=== PATIENT | male | born 1970 | race Caucasian/White ===

== ENCOUNTER 2016-05-05 11:55 | Inpatient (IN) | payer MEDICAID ==
[~2016-05-05] VITALS: Ht 180.3 cm; Wt 78.0 kg
[2016-05-05 12:00] VITALS: BP 146/93; PULSE 110; RESP 20; TEMP 97.8; O2SAT 94
--- NOTE | 2016-05-05 13:20 | NUR ---
Patient to [facility] for evaluation. Side rails up. Report given to EVELYN MITCHELL.
--- NOTE | 2016-05-05 13:30 | NUR ---
ER at bedside examining patient.
--- NOTE | 2016-05-05 13:40 | NUR ---
PT BIB EMS FOR ETOH INTOXICATION.PT H/O MULTIPLE ER VISITS IN DIFFERENT ERs FOR SAME COMPLAINT.UNABLE TO GATHER VERBAL HX FOR PT. WILL MONITOR.
[2016-05-05] MEDS ORDERED: NACL 0.9% 1,000 ML IV ONE (13:45)
--- NOTE | 2016-05-05 13:50 | NUR ---
# 18 gauge angiocath placed to RFA. Use of asceptic technique. Opsite placed over site. Blood return noted. Flushed with 10 cc of normal saline. No evidence of infiltration noted. Patient tolerated well.
[2016-05-05 14:13] LABS: EOSINOPHILS # (AUTO) 0.1 K/uL (0.0-0.4); MEAN CORPUSCULAR HEMOGLOBIN 27 pg (27-31); MEAN CORPUSCULAR HGB CONC 33 % (32-36); MEAN CORPUSCULAR VOLUME 82 fL (79.0-98.0); MONOCYTES # (AUTO) 0.4 K/uL (0.0-1.0); RED BLOOD CELL COUNT(AUTO) 3.68 MIL/uL (4.2-6.2)
[2016-05-05 14:15] LABS: CALCIUM 8.5 mg/dL (8.4-11.0); CREATININE 0.73 mg/dL (0.55-1.30); POTASSIUM 3.9 mmol/L (3.5-5.1)
[2016-05-05 14:20] LABS: ALBUMIN 3.2 g/dL (3.4-4.8); TOTAL BILIRUBIN 0.3 mg/dL (0.0-1.0); TOTAL PROTEIN, SERUM 7.4 g/dL (6.4-8.3)
[2016-05-05 14:24] LABS: BASOPHILS % (AUTO) 0.9 % (0.0-2.0); EOSINOPHILS % (AUTO) 2.3 % (0.0-4.0); HEMATOCRIT 30.1 % (36-54); LYMPHOCYTES # (AUTO) 1.1 K/uL (1.0-5.5); LYMPHOCYTES % (AUTO) 30.1 % (20.5-51.5); MONOCYTES % (AUTO) 10.6 % (1.7-9.3); NEUTROPHILS # (AUTO) 2.2 K/uL (1.8-7.7); NEUTROPHILS % (AUTO) 56.1 % (40.0-70.0); PLATELET COUNT (AUTO) 173 K/uL (130-430); RED CELL DISTRIBUTION WIDTH 15.7 % (9.0-15.0)
[2016-05-05 14:28] LABS: WHITE BLOOD COUNT (AUTO) 3.8 K/uL (4.8-10.8)
--- NOTE | 2016-05-05 14:30 | NUR ---
PT TOLERATING IVF.
--- NOTE | 2016-05-05 15:00 | NUR ---
PT REFUSING TO RESPONSE TO VERBAL AND TACTILE STIMULI
--- NOTE | 2016-05-05 15:55 | NUR ---
Patient will be admitted to care of . Admitted to ICU unit. Will go to room 4. Belongings list completed. Summary report printed. Report given to ADMISSION RN.
[2016-05-05 16:00] VITALS: BP 146/82; PULSE 108; RESP 12; TEMP 99.4; O2SAT 98
--- NOTE | 2016-05-05 16:00 | NUR ---
NURSE: PT ADMITTED VIA ER, A CASE OF ALCOHOL INTOXICATION, PT CAME IN DROWSY BUT AROUSABLE, ORIENTED TO SELF, ON ROOM AIR, HIS CLOTHES ARE WET WITH HIS URINE, HOOKED TO MONITOR, SINUS TACHY AT 102, BP STABLE, 0.9 NACL 1L IS GOING ON, WILL CALL DR RANGEL FOR ORDERS.
[2016-05-05 16:32] VITALS: BP 146/82; PULSE 102; RESP 22; TEMP 99.4; O2SAT 95
[2016-05-05 17:00] VITALS: BP 134/77; PULSE 87; RESP 18; O2SAT 96
[2016-05-05 18:00] VITALS: BP 158/90; PULSE 97; RESP 16; O2SAT 95
[2016-05-05] MEDS ORDERED: D5NS 1,000 ML IV SCH (18:45)
[2016-05-05] MEDS ORDERED: ONDANSETRON HCL 4 MG/2 ML VIAL IVP PRN (18:45)
[2016-05-05] MEDS ORDERED: ACETAMINOPHEN 325 MG TABLET PO PRN (18:45)
[2016-05-05] MEDS ORDERED: METOCLOPRAMIDE HCL 10 MG/2 ML VIAL IVP PRN (18:45)
[2016-05-05] MEDS ORDERED: LORazepam 2 MG/ML VIAL IM PRN (18:45)
[2016-05-05] MEDS ORDERED: FOLIC ACID 1 MG, THIAMINE HCL 100 MG, MAGNESIUM SULFATE 1 GM, MVI 10 ML in NACL 0.9% 1,... IV SCH (18:45)
[2016-05-05] MEDS ORDERED: MORPHINE 2 MG/ML INJ. SYRINGE IVP PRN (18:45)
--- NOTE | 2016-05-05 19:25 | NUR ---
NURSE; PT WENT AMA, DR RANGEL IS AWARE, IV LINE REMOVED, SIGNED AMA PAPER, PT WALKED OUT OF THE ICU ESCORTED BY THE SECURITY PERSONNEL.
[2016-05-10] MEDS ORDERED: FOLIC ACID 1 MG, THIAMINE HCL 100 MG, MAGNESIUM SULFATE 1 GM, MVI 10 ML in NACL 0.9% 1,... IV SCH (18:41)
== END 2016-05-05 19:49 | disposition left against medical advice (07) | DRG 770 ==
LOC: SED 11:55 → SIC 15:40
PROVIDERS: ADMIT Internal Medicine Hospice and Palliative Medicine; ATTEND Internal Medicine Hospice and Palliative Medicine
DX: F10.129 Alcohol abuse with intoxication, unspecified (principal); D64.9 Anemia, unspecified; R73.9 Hyperglycemia, unspecified
CPT/HCPCS: 36415; 80053; 85025; 99291; G0482; J7030

== ENCOUNTER 2016-06-03 18:38 | Inpatient (IN) | payer MEDICAID ==
[~2016-06-03] VITALS: Ht 170.2 cm; Wt 76.7 kg
[2016-06-03 18:38] VITALS: BP 111/60; PULSE 98; RESP 13; TEMP 98.9; O2SAT 98
--- NOTE | 2016-06-03 18:38 | NUR ---
Patient to ER bed 3 to gown for evaluation. Side rails up. Report given to STEPHEN Trevino.
--- NOTE | 2016-06-03 18:50 | NUR ---
Patient brought in due to being passed out on sidewalk sleeping, known history of alcohol abuse. Patient sleeping in bed, wakens to loud voice, grunting, not answering questions. Breathing even and unlabored, no distress noted. No other complaints/injuries per patient or noted.
--- NOTE | 2016-06-03 19:00 | NUR ---
Patient in bed, wakens to voice, still sleepy. Breathing unlabored, no respiratory distress noted
[2016-06-03] MEDS ORDERED: ONDANSETRON HCL 4 MG/2 ML VIAL IVP ONE (20:00)
[2016-06-03] MEDS ORDERED: FOLIC ACID 1 MG, THIAMINE HCL 100 MG, MAGNESIUM SULFATE 1 GM, MVI 10 ML in NACL 0.9% 1,... IV ONE (20:00)
[2016-06-03] MEDS ORDERED: MAG HYDROX/AL HYDROX/SIMETH 30 ML, BELLADONNA ALKALOIDS/PHENOBARB 10 ML, LIDOCAINE VISC... PO ONE ×3 (20:00)
--- NOTE | 2016-06-03 20:00 | NUR ---
Patient sleeping in bed, wakens to voice. No distress noted, breathing unlabored. Monitoring.
[2016-06-03 20:13] LABS: BASOPHILS # (AUTO) 0.1 K/uL (0.0-0.2); EOSINOPHILS # (AUTO) 0.1 K/uL (0.0-0.4); EOSINOPHILS % (AUTO) 1.3 % (0.0-4.0); LYMPHOCYTES # (AUTO) 1.1 K/uL (1.0-5.5)
[2016-06-03] MEDS ORDERED: THIAMINE HCL 100 MG/ML VIAL ONE (20:20)
[2016-06-03] MEDS ORDERED: MAGNESIUM SULFATE 1 GM/2 ML VIAL ONE (20:20)
[2016-06-03] MEDS ORDERED: FOLIC ACID 5 MG/ML VIAL IV ONE (20:20)
[2016-06-03 20:22] LABS: HEMATOCRIT 28.1 % (36-54); HEMOGLOBIN 9.2 g/dL (14.0-18.0); LYMPHOCYTES % (AUTO) 20.1 % (20.5-51.5); MEAN CORPUSCULAR HEMOGLOBIN 28 pg (27-31); MEAN CORPUSCULAR HGB CONC 33 % (32-36); MEAN CORPUSCULAR VOLUME 84 fL (79.0-98.0); MONOCYTES # (AUTO) 0.7 K/uL (0.0-1.0); MONOCYTES % (AUTO) 12.3 % (1.7-9.3); NEUTROPHILS # (AUTO) 3.4 K/uL (1.8-7.7); NEUTROPHILS % (AUTO) 64.3 % (40.0-70.0); PLATELET COUNT (AUTO) 275 K/uL (130-430); RED BLOOD CELL COUNT(AUTO) 3.35 MIL/uL (4.2-6.2); RED CELL DISTRIBUTION WIDTH 17.1 % (9.0-15.0); WHITE BLOOD COUNT (AUTO) 5.4 K/uL (4.8-10.8)
[2016-06-03 20:25] LABS: CALCIUM 8.6 mg/dL (8.4-11.0); CREATININE 0.72 mg/dL (0.55-1.30)
[2016-06-03 20:29] LABS: ALBUMIN 3.1 g/dL (3.4-4.8); TOTAL BILIRUBIN 0.3 mg/dL (0.0-1.0); TOTAL PROTEIN, SERUM 7.2 g/dL (6.4-8.3)
[2016-06-03 20:40] LABS: PROTHROMBIN TIME 10.4 SECS (9.5-12.5)
--- NOTE | 2016-06-03 21:00 | NUR ---
Patient remains sleeping, breathing even and unlabored. Wakens to voice. Dr. Jaja ruby.
--- NOTE | 2016-06-03 21:27 | NUR ---
Miguel taylor in [facility] - 06/03/[address] Wilkinson aware that batsheva skelton
--- NOTE | 2016-06-03 21:27 | NUR ---
Dr. Wilkinson aware that patient can not have GI cocktail due to being too lethargic, stated okay do not need.
--- NOTE | 2016-06-03 21:30 | NUR ---
Unable to obtain urine sample due to patient refusing when sample is attempted to get obtained. Dr. Jaja ruby.
--- NOTE | 2016-06-03 21:56 | NUR ---
Patient in stable condition, sleeping, wakens to voice Breathing unlabored, no respiratory distress noted
--- NOTE | 2016-06-03 22:20 | NUR ---
Patient will be admitted to care of Dr. Parr. Admitted to tele unit. Summary report printed. Report given to Maggy MITCHELL.
--- NOTE | 2016-06-03 22:23 | NUR ---
ADMISSION NOTE Received patient from ER via mark, received report from Belinda MITCHELL. Patient admitted with diagnosis of ETOH withdraw. Patient not oriented to hospital routine, call light. Bed close to station for safety, bed alarm on.
[2016-06-03 23:09] VITALS: BP 132/78; PULSE 86; RESP 18; TEMP 97; O2SAT 98
--- NOTE | 2016-06-03 23:41 | NUR ---
RN ROUNDS Received patient from ER. Dx: alcohol intoxication, patient drowsy, responds to tactile stimuli, vitals stable. Bed bath and incontinence care provided, patient urinated in urinal with assistance, placed on tele monitor, ST. IV line to left AC intact and patent, IVF infusing, all patient belongings accounted for. Fall and safety measures in place, bed alarm on, call light within reach, will closely monitor.
--- NOTE | 2016-06-04 00:42 | NUR ---
RN ROUNDS Patient asleep, respirations even and unlabored, vitals stable. IVF ongoing, safety measures in place, call light within reach, will continue to monitor.
[2016-06-04 00:51] VITALS: BP 115/72; PULSE 85; RESP 17; TEMP 97.1; O2SAT 95
--- NOTE | 2016-06-04 02:06 | NUR ---
RN ROUNDS Patient continues to sleep, respirations even and unlabored. fall and safety measures in place, call light within reach, will continue to monitor.
[2016-06-04] MEDS: LORazepam 2 MG/ML VIAL IVP PRN ×4 (02:54→18:04)
[2016-06-04] MEDS: NACL 0.9% 1,000 ML IV SCH ×3 (02:58→18:30)
--- NOTE | 2016-06-04 03:29 | NUR ---
RN ROUNDS Patient awake, crying, Ativan 1 mg ivp given, patient requesting HS snack, needs attended to.
[2016-06-04 04:23] VITALS: BP 121/65; PULSE 107; RESP 16; TEMP 96.9; O2SAT 98
--- NOTE | 2016-06-04 04:49 | NUR ---
RN ROUNDS Patient awake, watching tv, no distress noted, vital signs stable. Call light within reach, will monitor.
--- NOTE | 2016-06-04 05:34 | NUR ---
PAGED: I PAGED DR. PATTON [phone] I SPOKE WITH SHEA PATTON CALLED BACK @ [phone]
[2016-06-04] MEDS: IBUPROFEN 600 MG TABLET PO PRN ×3 (05:49→20:24)
[2016-06-04 06:02] LABS: BILIRUBIN,URINE NEGATIVE (NEGATIVE); BLOOD, URINE NEGATIVE (NEGATIVE); CLARITY/URINE CLEAR (CLEAR); COLOR,URINE YELLOW (YELLOW); GLUCOSE,URINE 3+ (NEGATIVE); KETONES,URINE 1+ (NEGATIVE); LEUKOCYTE ESTERASE ,URINE NEGATIVE (NEGATIVE); NITRITE, URINE NEGATIVE (NEGATIVE); PH,URINE 5.5 (5.0-8.0); PROTEIN URINE NEGATIVE (NEGATIVE); UROBILINOGEN,URINE 0.2 (0.2-1.0)
[2016-06-04 06:19] LABS: BACTERIA,URINE FEW /HPF (None Seen); MUCUS,URINE None Seen /LPF (None Seen); RBC,URINE 0-3 /HPF (0-3); WBC,URINE 0-3 /HPF (0-3)
--- NOTE | 2016-06-04 06:37 | NUR ---
RN ROUNDS/MD Patient awake and alert, was c/o of right hip pain, right hip with bruises, patient stated he fell and that is how he got the bruises. Paged Dr. Parr, called back, ordered Motrin for pain and xray of right hip. Medicated patient with Motrin 600 mg 1 tab for pain management. Needs attended to, call light remains within reach, fall and safety measures maintained, will continue to monitor until report given to am nurse.
--- NOTE | 2016-06-04 08:00 | NUR ---
OPENING NOTE PATIENT REPORTS RIGHT HIP PAIN RT FALL PRIOR TO ARRIVAL. LARGE HEMATOMA ON RIGHT HIP NOTED. ICE PACKS APPLIED. PATIENT ALSO STATES HE HAS SEIZURES WHEN HE STOPS DRINKING AND CLAIMS TO TAKE 2MG OF ATIVAN EVERY FOUR HOURS AT HOME.
[2016-06-04 08:06] LABS: BASOPHILS # (AUTO) 0.1 K/uL (0.0-0.2); BASOPHILS % (AUTO) 1.7 % (0.0-2.0); EOSINOPHILS % (AUTO) 1.1 % (0.0-4.0); HEMATOCRIT 23.2 % (36-54); HEMOGLOBIN 7.6 g/dL (14.0-18.0); LYMPHOCYTES # (AUTO) 0.9 K/uL (1.0-5.5); LYMPHOCYTES % (AUTO) 20.2 % (20.5-51.5); MEAN CORPUSCULAR HEMOGLOBIN 27 pg (27-31); MEAN CORPUSCULAR HGB CONC 33 % (32-36); MEAN CORPUSCULAR VOLUME 83 fL (79.0-98.0); MONOCYTES # (AUTO) 0.7 K/uL (0.0-1.0); MONOCYTES % (AUTO) 16.4 % (1.7-9.3); NEUTROPHILS # (AUTO) 2.7 K/uL (1.8-7.7); NEUTROPHILS % (AUTO) 60.6 % (40.0-70.0); PLATELET COUNT (AUTO) 242 K/uL (130-430)
[2016-06-04 08:14] VITALS: BP 142/84; PULSE 103; RESP 22; TEMP 98.7; O2SAT 97
[2016-06-04 08:15] LABS: ALBUMIN 2.4 g/dL (3.4-4.8); CALCIUM 7.6 mg/dL (8.4-11.0); CREATININE 0.67 mg/dL (0.55-1.30); POTASSIUM 3.6 mmol/L (3.5-5.1); TOTAL BILIRUBIN 0.2 mg/dL (0.0-1.0); WHITE BLOOD COUNT (AUTO) 4.4 K/uL (4.8-10.8)
[2016-06-04] MEDS: THIAMINE HCL 100 MG TABLET PO SCH (08:39)
[2016-06-04] MEDS: PANTOPRAZOLE SODIUM 40 MG TAB PO SCH (08:39)
[2016-06-04] MEDS: FOLIC ACID 1 MG TABLET PO SCH (08:39)
[2016-06-04] MEDS ORDERED: chlordiazePOXIDE HCL 25 MG CAPSULE PO SCH (09:00)
--- NOTE | 2016-06-04 09:21 | NUR ---
Nutrition Update Raghav Scale 17 noted. Pt admitted for alcohol intoxication. Diet: [facility] BMI: 26.8 kg/m2 RD to follow per nutrition care standards.
--- NOTE | 2016-06-04 09:34 | NUR ---
DR PATTON IN TO SEE PATIENT. NEW ORDERS GIVEN. HIP X RAY COMPLETE.
[2016-06-04] MEDS ORDERED: FERROUS SULFATE 325 MG TABLET.DR PO ONE (09:45)
[2016-06-04] MEDS ORDERED: ONDANSETRON HCL 4 MG/2 ML VIAL IVP PRN (10:00)
[2016-06-04] MEDS ORDERED: cloNIDine HCL 0.1 MG TABLET PO PRN (10:00)
--- NOTE | 2016-06-04 10:00 | NUR ---
CONSULTATION: REASON FOR CONSULT: LEFT HAND WEAKNESS CONSULTING PHYSICIAN: AZUL MARSHALL MD ORDERED BY: JAIDA PATTON MD SPOKE WITH FRANK
[2016-06-04 10:10] LABS: BARBITURATE, URINE NEGATIVE (NEG <=200); URINE AMPHETAMINE NEGATIVE (NEG <=500)
[2016-06-04 10:11] LABS: BENZODIAZEPINE, URINE POSITIVE (NEG <=150); CANNABINOID, URINE NEGATIVE (NEG <=50); COCAINE, URINE NEGATIVE (NEG <=150); METHAMPHETAMINES SCREEN,URINE NEGATIVE (NEG <=500); OPIATE, URINE NEGATIVE (NEG <=100); PHENCYCLIDINE SCREEN,URINE NEGATIVE (NEG <=25); UR TRICYCLIC ANTIDEPRESSANTS NEGATIVE (NEG <=300); URINE METHADONE NEGATIVE (NEG <=200); URINE OXYCODONE SCREEN NEGATIVE (NEG <=100); URINE PROPOXYPHENE SCREEN NEGATIVE (NEG <=300)
--- NOTE | 2016-06-04 10:39 | NUR ---
RT IN ROOM FOR BREATHING TX. PATIENT STATES HE FEELS LIKE HE CANT SWALLOW HIS SPIT.
--- NOTE | 2016-06-04 10:42 | NUR ---
DR. ABDI RUFF. PATIENT MENTIONED THERE HAD BEEN BRIGHT BLOOD IN HIS STOOL.
[2016-06-04] MEDS ORDERED: GLUCOSE 15 GM GEL (in 37.5 GM TUBE) PO PRN ×2 (10:45)
[2016-06-04] MEDS ORDERED: DEXTROSE 50%-WATER 50 ML DISP.SYRIN IVP PRN ×2 (10:45)
[2016-06-04] MEDS ORDERED: DOCUSATE SODIUM 100 MG CAPSULE PO ONE (10:45)
[2016-06-04] MEDS: HYDROcodone/ACETAMIN 10-325 MG TAB PO PRN ×2 (10:47→18:03)
[2016-06-04] MEDS: LORazepam 1 MG TABLET PO PRN ×3 (11:42→20:09)
--- NOTE | 2016-06-04 12:00 | NUR ---
BG 398 PATIENT STILL C/O AGITATION. REPORTS NO RELIEF FROM PAIN WITH PAIN PILL. PATIENT GIVEN PO ATIVAN PER ORDERS. PT NOW C/O RASH TO GROIN/SCROTUM AREA. PATIENT GIVEN Z GUARD CREAM AND A RAG TO WIPE HIS HANDS WITH. IS NOW EATING LUNCH.
[2016-06-04 12:22] VITALS: BP 153/82; PULSE 98; RESP 17; TEMP 98; O2SAT 98
[2016-06-04] MEDS: INSULIN REGULAR, HUMAN 100 UNITS/ML, 10 ML VIAL (novoLIN R) SUBCUT PRN ×3 (12:30→20:47)
--- NOTE | 2016-06-04 12:39 | NUR ---
patient given 10 units of regular insulin. patient states he feels weak and nervous. advised patient he was detoxing and we are medicating him for it.
--- NOTE | 2016-06-04 13:10 | NUR ---
CONSENT FOR MRI SIGNED. PATIENT TAKEN TO MRI VIA WHEELCHAIR. ABLE TO STAND AND SIT IN TO WC.
--- NOTE | 2016-06-04 14:32 | NUR ---
PATIENT RETURNED FROM MRI VIA WHEELCHAIR. NO SIGNS OF DISTRESS. AWAKE, ALERT AND ORIENTED.
[2016-06-04] MEDS: chlordiazePOXIDE HCL 25 MG CAPSULE PO SCH ×2 (15:26→20:08)
--- NOTE | 2016-06-04 16:23 | NUR ---
patient is sleeping. no signs of distress, pain, agitation
[2016-06-04 16:49] VITALS: BP 138/96; PULSE 97; RESP 18; TEMP 98; O2SAT 98
[2016-06-04] MEDS: metFORMIN HCL 500 MG TABLET PO SCH (18:03)
--- NOTE | 2016-06-04 19:35 | NUR ---
OPENING NOTES REPORT GIVEN AT BEDSIDE BY AM NURSE. PATIENT IS RESTING IN BED. IV IS PATENT AND FLUSHING. BED IN LOWEST POSITION. BED ALARM IS ON. SEIZURE PRECAUTIONS IN PLACE. PATIENTS ROOM IS NEAR THE NURSES STATION. CALL LIGHT WITHIN REACH. W8ILL CONTINUE TO MONITOR FREQUENTLY.
[2016-06-04 19:55] VITALS: PULSE 85; RESP 20; TEMP 98.3; O2SAT 99
[2016-06-04] MEDS: DOCUSATE SODIUM 100 MG CAPSULE PO SCH (20:09)
--- NOTE | 2016-06-04 21:00 | NUR ---
ROUNDS PATIENT IS RESTING IN BED. PATIENT IS A BIT AGITATED AND COMPLAINING OF PAIN. PATIENT REQUESTED IV ATIVAN VERSUS PO ATIVAN. PATIENT GIVEN PAIN MEDICATION PRESCRIBED. BED IN LOWEST POSITION, BED ALARM ON, SEIZURE PRECAUTIONS IN PLACE. CALL LIGHT WITHIN REACH. WILL CONTINUE TO MONITOR FREQUENTLY.
--- NOTE | 2016-06-04 22:43 | NUR ---
DR ABDI LI CALLED AND ORDERED OCCULT BLOOD COLLECTION AND A GI CONSULTATION.
--- NOTE | 2016-06-04 23:03 | NUR ---
ROUNDS PATIENT IS RESTING IN BED. PATIENT IS AGAIN ASKING FOR PAIN MEDICATION. BED IN LOWEST POSITION, BED ALARM ON, SEIZURE PRECAUTIONS IN PLACE. CALL LIGHT WITHIN REACH. WILL CONTINUE TO MONITOR FREQUENTLY.
--- NOTE | 2016-06-04 23:04 | NUR ---
ROUNDS PATIENT PROVIDED PAIN MEDICATION PRESCRIBED. WILL CONTINUE TO MONITOR.
--- NOTE | 2016-06-04 23:45 | NUR ---
REPORT TAKEN FROM ER REPORT WAS GIVEN AT BEDSIDE BY LUCAS FROM ER. PER LUCAS PER SEPSIS PROTOCOL; TO WITHOLD IV FLUIDS.
[2016-06-05 00:17] VITALS: BP 141/86; PULSE 78; RESP 16; TEMP 98.2; O2SAT 99
--- NOTE | 2016-06-05 01:04 | NUR ---
ROUNDS PATIENT IS SLEEPING COMFORTABLY. VISIBLE RISE AND FALL OF CHEST, SNORING LOUDLY. NO SIGNS OR SYMPTOMS OF DISTRESS NOTED. BED IN LOWEST POSITION, BED ALARM ON, CALL LIGHT WITHIN REACH. WILL CONTINUE TO MONITOR.
[2016-06-05] MEDS: LORazepam 2 MG/ML VIAL IVP PRN ×3 (02:52→18:40)
--- NOTE | 2016-06-05 03:05 | NUR ---
ROUNDS PATIENT IS RESTING. BED IN LOWEST POSITION, BED ALARM ON, CALL LIGHT WITHIN REACH. WILL CONTINUE TO MONITOR.
[2016-06-05 04:14] VITALS: BP 134/87; PULSE 87; RESP 16; TEMP 98.1; O2SAT 97
[2016-06-05] MEDS: INSULIN REGULAR, HUMAN 100 UNITS/ML, 10 ML VIAL (novoLIN R) SUBCUT PRN ×4 (06:20→21:59)
[2016-06-05] MEDS: HYDROcodone/ACETAMIN 10-325 MG TAB PO PRN ×4 (06:26→22:10)
--- NOTE | 2016-06-05 06:45 | NUR ---
CLOSING NOTES PATIENT RESTING COMFORTABLY. NO SIGNS OR SYMPTOMS OF DISTRESS NOTED. NO ACTIVE BLEEDING NOTED, PATIENT AWARE THAT A STOOL SPECIMEN NEEDS TO BE COLLECTED FOR OCCULT BLOOD. SEIZURE PADDINGS IN PLACE. NO SEIZURE NOTED THROUGHOUT SHIFT. ALL NEEDS MET THROUGHOUT SHIFT. FALL RISK PRECAUTIONS IN PLACE. WILL ENDORSE CARE TO ONCOMING NURSE.
--- NOTE | 2016-06-05 07:15 | NUR ---
IV PLACEMENT: # 18 gauge angiocath placed to LEFT HAND. Use of aseptic technique. Opsite placed over site. Blood return noted. Flushed with 10 cc of normal saline. No evidence of infiltration noted. Patient tolerated well.
--- NOTE | 2016-06-05 07:30 | NUR ---
rn notes: patient is aox 3-4. afebrile. vss stable. lungs bilaterally diminished at the bases. abdomen soft and non distended. has iv access on the left Ac #22. normal saline at 100cc/hr infusing on well. call lights within reach. safety measures maintained. bed in low position. hob elevated. rt hand contracted. skin problem on the rt hand has z guard applied on it. assists on adls. informed patients to call for assistance.
[2016-06-05 08:00] LABS: BASOPHILS # (AUTO) 0.1 K/uL (0.0-0.2); BASOPHILS % (AUTO) 1.1 % (0.0-2.0); EOSINOPHILS # (AUTO) 0.1 K/uL (0.0-0.4); EOSINOPHILS % (AUTO) 1.8 % (0.0-4.0); HEMATOCRIT 25.6 % (36-54); HEMOGLOBIN 8.5 g/dL (14.0-18.0); LYMPHOCYTES # (AUTO) 0.8 K/uL (1.0-5.5); LYMPHOCYTES % (AUTO) 15.3 % (20.5-51.5); MEAN CORPUSCULAR HEMOGLOBIN 28 pg (27-31); MEAN CORPUSCULAR HGB CONC 33 % (32-36); MEAN CORPUSCULAR VOLUME 84 fL (79.0-98.0); MONOCYTES # (AUTO) 0.5 K/uL (0.0-1.0); MONOCYTES % (AUTO) 11.2 % (1.7-9.3); NEUTROPHILS # (AUTO) 3.4 K/uL (1.8-7.7); NEUTROPHILS % (AUTO) 70.6 % (40.0-70.0); PLATELET COUNT (AUTO) 289 K/uL (130-430); RED BLOOD CELL COUNT(AUTO) 3.06 MIL/uL (4.2-6.2); RED CELL DISTRIBUTION WIDTH 16.8 % (9.0-15.0); WHITE BLOOD COUNT (AUTO) 4.9 K/uL (4.8-10.8)
[2016-06-05 08:24] VITALS: BP 146/87; RESP 18; TEMP 98.8; O2SAT 97
[2016-06-05 08:33] LABS: ALBUMIN 2.4 g/dL (3.4-4.8); CALCIUM 8.6 mg/dL (8.4-11.0); CREATININE 0.51 mg/dL (0.55-1.30); POTASSIUM 3.8 mmol/L (3.5-5.1); TOTAL BILIRUBIN 0.5 mg/dL (0.0-1.0); TOTAL PROTEIN, SERUM 6.2 g/dL (6.4-8.3)
[2016-06-05] MEDS: PANTOPRAZOLE SODIUM 40 MG TAB PO SCH (08:55)
[2016-06-05] MEDS: chlordiazePOXIDE HCL 25 MG CAPSULE PO SCH ×3 (08:55→21:45)
[2016-06-05] MEDS: FOLIC ACID 1 MG TABLET PO SCH (08:55)
[2016-06-05] MEDS: IBUPROFEN 600 MG TABLET PO PRN ×2 (08:55→18:30)
[2016-06-05] MEDS: DOCUSATE SODIUM 100 MG CAPSULE PO SCH (08:55)
[2016-06-05] MEDS: THIAMINE HCL 100 MG TABLET PO SCH (08:55)
[2016-06-05] MEDS: metFORMIN HCL 500 MG TABLET PO SCH ×2 (08:56→17:27)
--- NOTE | 2016-06-05 09:00 | NUR ---
due medication given at this time.
[2016-06-05 10:00] VITALS: BP 113/55; PULSE 62; RESP 18; TEMP 97.4; O2SAT 97
--- NOTE | 2016-06-05 10:00 | NUR ---
assists on adls.
--- NOTE | 2016-06-05 10:30 | NUR ---
informed patient to be Npo status and informed Paty Trash Man for the upper gi series and ultrasound of abdomen today.
[2016-06-05 11:55] VITALS: Ht 170.2 cm; Wt 76.7 kg
[2016-06-05 12:35] VITALS: BP 139/63; PULSE 78; RESP 16; TEMP 98.2; O2SAT 98
--- NOTE | 2016-06-05 12:50 | NUR ---
PATIENT LEFT WITH [facility] radiology department. patient is npo status from 730am.
--- NOTE | 2016-06-05 14:35 | NUR ---
due medication given as ordered. made comfortable.
--- NOTE | 2016-06-05 15:41 | NUR ---
PHYSICAL THERAPY CO-SIGN The Physical Therapy Progress Notes documented by Police Judge have been reviewed. I CONCUR W/SHIPSMITH NOTE; CONT PER TX PLAN Reviewed/Co-Signed by: Roselyn Garcia PT Documentation Done by: TERESA BEARDEN SHIPSMITH Addendum: 06/05/16 at 1542 by Roselyn Garcia PT Amended: Links added.
[2016-06-05 16:15] VITALS: BP 129/64; PULSE 80; RESP 17; TEMP 98.1; O2SAT 98
--- NOTE | 2016-06-05 16:39 | NUR ---
patient is stable. asleep at this time.
--- NOTE | 2016-06-05 17:35 | NUR ---
latest bs is 340mg/dl. coverage given at this time. refused scds at this time.
--- NOTE | 2016-06-05 18:30 | NUR ---
refused the scds bilaterally at this time. said had some itchiness on it.
--- NOTE | 2016-06-05 18:30 | NUR ---
motrin po given with water. assists on adls.
--- NOTE | 2016-06-05 18:42 | NUR ---
ativan 1 mg iv given at this time. stable.
--- NOTE | 2016-06-05 18:58 | NUR ---
VERBALIZED WANTS TO RELAX AND SLEEP.
--- NOTE | 2016-06-05 19:00 | NUR ---
refused to put back the iv normal saline. said later.
--- NOTE | 2016-06-05 19:35 | NUR ---
sbar report given to incoming nurse Lola MITCHELL
--- NOTE | 2016-06-05 20:00 | NUR ---
INITIAL NOTES: PT IS SLEEPING, EASILY AROUSABLE, REFUSED TO CHECK VITALS AND ASSESSMENT AT THIS TIME; WILL DO LATER .
[2016-06-05] MEDS ORDERED: DOCUSATE SODIUM 100 MG CAPSULE PO SCH (21:00)
--- NOTE | 2016-06-05 21:00 | NUR ---
RN NOTES: PT IS SLEEPING , EASILY AROUSABLE , NOT IN ANY ACUTE DISTRESS; NOTICED BRUISES TO R THIGH AND TOES ; ASSESSMENT DONE , PT REFUSED TO CONNECT TO SCD , EDUCATED PT , STILL PT REFUSED . IV FLUID RECONNECTED . IV , NO S/ S OF ANY INFILTRATION OR INFECTION NOTED .CALL CHAMPION IN REACH ; INSTRUCTED TO CALL FOR ANY HELP ;SAFETY PRECAUTIONS IN PLACE ; WILL CONTINUE TO MONITOR.
--- NOTE | 2016-06-05 22:10 | NUR ---
MEDICATION: DUE MEDS GIVEN BY A.N ; PT C/O PAIN , MEDICATED WITH NORCO ORDERED .
--- NOTE | 2016-06-06 00:05 | NUR ---
RN ROUNDS: PT IS SLEEPING, NOT IN ANY ACUTE DISTRESS ; WILL CONTINUE TO MONITOR.
[2016-06-06 00:32] VITALS: BP 119/72; PULSE 80; RESP 18; TEMP 97.5; O2SAT 96
[2016-06-06 00:34] VITALS: BP 119/72; PULSE 80; RESP 18; TEMP 97.5; O2SAT 96
[2016-06-06] MEDS: NACL 0.9% 1,000 ML IV SCH (01:09)
--- NOTE | 2016-06-06 01:56 | NUR ---
RN ROUND: Patient resting on the bed with eyes closed. Respiration even and unlabored. Call light within reached. Safety measure maintained. Bed alarm on, bed in low position, side rails up. Continue to monitor.
--- NOTE | 2016-06-06 03:40 | NUR ---
NEW IV: LFA ,NOTED IV IS INFILTRATED ;IV CATH REMOVED , TIP IS INTACT , DRESSING APPLIED ; NEW IV STARTED TO THE R HAND 22 G; GOOD BLOOD RETURN AND FLUSHED WELL. PT REQUESTED FOR ATIVAN , ATIVAN IV GIVEN ORDERED .FALL PRECAUTION IN PLACE
[2016-06-06] MEDS: LORazepam 2 MG/ML VIAL IVP PRN (03:43)
[2016-06-06 04:23] VITALS: BP 152/112; PULSE 81; RESP 20; TEMP 98.5; O2SAT 99
--- NOTE | 2016-06-06 05:00 | NUR ---
RN ROUNDS: PT IS SLEEPING , NOT IN ANY ACUTE DISTRESS; WILL CONTINUE TO MONITOR.
[2016-06-06] MEDS: HYDROcodone/ACETAMIN 10-325 MG TAB PO PRN (05:40)
[2016-06-06] MEDS: INSULIN REGULAR, HUMAN 100 UNITS/ML, 10 ML VIAL (novoLIN R) SUBCUT PRN (06:17)
--- NOTE | 2016-06-06 06:43 | NUR ---
CLOSING NOTES: BS 208, R INSULIN 4 UNITS GIVEN ORDERED ; PROVIDED SNACKS TO THE PT ; NO SEIZURE ACTIVITIES NOTED ; NO SIGNIFICANT CHANGES NOTED ; WILL CONTINUE TO MONITOR AND WILL ENDORSE TO NEXT SHIFT NURSE.
--- NOTE | 2016-06-06 07:00 | NUR ---
RN NOTES: PT CALLED RN ,PT IS AGITATED ,STATED HE WANTS TO GO HOME IMMEDIATELY; INFORMED PT THAT MD IS NOT HERE YET TO DISCHARGE HIM ; PT STATED "HE HAS A FAMILY EMERGENCY , HE CALLED BANK PER THEM HE DONT HAVE HIS MONEY IN HIS ACCOUNT ". PT THINKS THAT HIS DAUGHTER TOOK HIS MONEY AND HE WANTS TO LEAVE NOW ; EXPLAINED TO THE PT THE CONSEQUENCES; AND INFORMED HIM THAT HE IS NOT READY TO GET DISCHARGE YET .ALSO INFORMED HIM THAT IF HE HAS TO LEAVE HE CAN ONLY GO AGAINST [facility] , PT STATED HE KNOWS THAT , HE WANTS TO LEAVE NOW. PT REQUESTED TO USE THE RESTROOM ; IV DISCONNECTED AND ASSISTED PT TO RESTROOM ; A.N IS WAITING AT THE ROOM . WILL GET THE AMA PAPERS
--- NOTE | 2016-06-06 07:25 | NUR ---
Pt AMA AMA FORM SIGNED. PT EDUCATED TO RISK OF LEAVING. pT PROVIDED 2 CONTAINERS OJ, ARM BAND REMOVED, BELONGINGS ACCOUNTED FOR, AND PT LEFT HOSPITAL VIA WHEELCHAIR. DR RUFF
[2016-06-06 07:33] LABS: BASOPHILS # (AUTO) 0.1 K/uL (0.0-0.2); BASOPHILS % (AUTO) 0.8 % (0.0-2.0); EOSINOPHILS # (AUTO) 0.1 K/uL (0.0-0.4); HEMATOCRIT 26.7 % (36-54); HEMOGLOBIN 8.5 g/dL (14.0-18.0); LYMPHOCYTES # (AUTO) 0.7 K/uL (1.0-5.5); LYMPHOCYTES % (AUTO) 11.1 % (20.5-51.5); MEAN CORPUSCULAR HEMOGLOBIN 27 pg (27-31); MEAN CORPUSCULAR HGB CONC 32 % (32-36); MEAN CORPUSCULAR VOLUME 86 fL (79.0-98.0); MONOCYTES # (AUTO) 0.7 K/uL (0.0-1.0); NEUTROPHILS % (AUTO) 76.1 % (40.0-70.0); PLATELET COUNT (AUTO) 367 K/uL (130-430); RED BLOOD CELL COUNT(AUTO) 3.12 MIL/uL (4.2-6.2); RED CELL DISTRIBUTION WIDTH 16.9 % (9.0-15.0)
[2016-06-06 07:49] LABS: WHITE BLOOD COUNT (AUTO) 6.6 K/uL (4.8-10.8)
[2016-06-06 07:51] LABS: ALBUMIN 2.5 g/dL (3.4-4.8); CALCIUM 8.5 mg/dL (8.4-11.0); CREATININE 0.59 mg/dL (0.55-1.30); POTASSIUM 4.1 mmol/L (3.5-5.1); TOTAL BILIRUBIN 0.6 mg/dL (0.0-1.0); TOTAL PROTEIN, SERUM 6.6 g/dL (6.4-8.3)
--- NOTE | 2016-06-06 08:42 | NUR ---
Dr Parr paged re the AMA. Spoke with Carmen who will page the doctor.
--- NOTE | 2016-06-06 08:45 | NUR ---
DR Parr called back and he was notified that the patient had left AMA.
--- NOTE | 2016-06-06 09:00 | NUR ---
PT NOTE 858 MEDICAL CHART REVIEWED, PER NOTE Pt WAS GOING HOME AMA; CONFIRMED WITH RN THAT Pt LEFT AMA EARLIER. PVE(1)
== END 2016-06-06 07:25 | disposition left against medical advice (07) | DRG 282 ==
LOC: SED 18:38 → STU 22:06
PROVIDERS: ADMIT Internal Medicine; ATTEND Internal Medicine
DX: K85.90 Acute pancreatitis without necrosis or infection, unspecified (principal); E43 Unspecified severe protein-calorie malnutrition; D64.9 Anemia, unspecified; I10 Essential (primary) hypertension; E11.9 Type 2 diabetes mellitus without complications; F10.129 Alcohol abuse with intoxication, unspecified; Z87.11 Personal history of peptic ulcer disease; Z53.21 Procedure and treatment not carried out due to patient leaving prior to being seen by health care provider; Z68.26 Body mass index [BMI] 26.0-26.9, adult
CPT/HCPCS: 36415; 70551; 71010; 73510-TC; 74246; 76700-TC; 80053; 80307; 81000-TC; 82150-TC; 82962; 83690-TC; 84478-TC; 85018-TC; 85025; 85610-TC; 87081; 95816; 96374; 97110-GP; 97116-GP; 97530-GP; 99285; G0482; J1815; J2001; J2060; J2405; J3411; J3475; J3490; J7030

== ENCOUNTER 2016-06-23 23:05 | Emergency (ER) | payer SELFPAY ==
[~2016-06-23] VITALS: Ht 170.2 cm; Wt 81.6 kg
[2016-06-23 23:05] VITALS: BP_SYST 138
[2016-06-23 23:40] VITALS: BP_SYST 132
== END 2016-06-23 23:40 | disposition home or self-care (01) ==
LOC: SED 23:05
DX: F10.129 Alcohol abuse with intoxication, unspecified (principal); E11.9 Type 2 diabetes mellitus without complications; Z88.8 Allergy status to other drugs, medicaments and biological substances
CPT/HCPCS: 99283

== ENCOUNTER 2016-06-24 01:12 | Emergency (ER) | payer SELFPAY ==
[~2016-06-24] VITALS: Ht 170.2 cm; Wt 79.4 kg
[2016-06-24 01:12] VITALS: BP_SYST 137
[2016-06-24 02:00] VITALS: BP_SYST 137
== END 2016-06-24 02:10 | disposition home or self-care (01) ==
LOC: SED 01:12
DX: F10.129 Alcohol abuse with intoxication, unspecified (principal); E11.9 Type 2 diabetes mellitus without complications; Z88.8 Allergy status to other drugs, medicaments and biological substances
CPT/HCPCS: 99283